=== PATIENT | female | born 1980 | race Caucasian/White ===

== ENCOUNTER → 2018-02-08 | Outpatient (CLI) | payer BC ==
--- NOTE | 2018-02-08 17:35 | KCIC ---
EXAM: OBSTETRIC ULTRASOUND. HISTORY: anatomy survey. FINDINGS: Sonographic evaluation of the pelvis and fetus was performed transabdominally. A single intrauterine fetus in vertex presentation measures 20 weeks 6 days. Individual measurements are commensurate at 20 weeks 4 days-21 weeks 3 days. Estimated weight is 383 g. heart rate is 149 bpm. A yolk sac is visualized. There is no subchorionic collection. The gestational sac is regular. The cervix is closed and measures 5.7 cm. Amniotic fluid index is 16.3 cm. The placenta is posterior. The bladder is visualized. The cord is three-vessel. Images of the kidneys reveal no hydronephrosis. The diaphragm is complete. The cord insertion appears normal. The heart is four-chamber. The left ventricular outflow tract is visualized. The profile appears normal. The posterior fossa appears normal. There is no hydrocephalus. Nose/lip morphology appears normal. extremities appear normal. Images of the spine reveal no clear defects. The maternal adnexa obscured currently. IMPRESSION: 1. Single intrauterine gestation measuring 20 weeks 6 days. heart rate 149 bpm. Electronically signed by: Carlyn Ayala MD (02/08/2018 5:32 PM) [facility]
== END | disposition home or self-care (01) ==
LOC: KCIC US 12:12
DX: O09.92 Supervision of high risk pregnancy, unspecified, second trimester (principal); Z3A.20 20 weeks gestation of pregnancy
CPT/HCPCS: 76805